=== PATIENT | female | born 1950 | race Caucasian/White ===

== ENCOUNTER 2021-01-31 17:08 | Emergency (ER) | payer BC ==
[~2021-01-31] VITALS: Ht 160 cm; Wt 74.4 kg
[2021-01-31] MEDS ORDERED: HUMALOG100 UNIT/1 SUB-Q (17:21)
[2021-01-31] MEDS ORDERED: PLAVIX75 MG PO (17:22)
[2021-01-31] MEDS ORDERED: ASPIRIN81 MG PO (17:22)
[2021-01-31] MEDS ORDERED: ATORVASTATIN CA80 MG PO (17:22)
[2021-01-31] MEDS ORDERED: LEVOTHYROXINE125 MC1 PO (17:23)
[2021-01-31] MEDS ORDERED: TIMOLOL MALEATE5 M2 OP (17:23)
[2021-01-31] MEDS ORDERED: OMEPRAZOLE20 MG PO (17:23)
[2021-01-31] MEDS ORDERED: VENLAFAXINE HCL75 MG PO (17:23)
[2021-01-31] MEDS ORDERED: NOVOLOG100 UNIT/2 ID (17:48)
== END 2021-01-31 17:56 | disposition home or self-care (01) ==
LOC: ED 17:08
DX: E11.9 Type 2 diabetes mellitus without complications (principal); Z76.0 Encounter for issue of repeat prescription; I10 Essential (primary) hypertension; E78.00 Pure hypercholesterolemia, unspecified; I25.2 Old myocardial infarction; Z88.0 Allergy status to penicillin; Z88.5 Allergy status to narcotic agent; Z79.899 Other long term (current) drug therapy; Z79.82 Long term (current) use of aspirin; Z79.4 Long term (current) use of insulin
CPT/HCPCS: 99281